=== PATIENT | female | born 1985 | race Caucasian/White ===

== ENCOUNTER 2016-09-23 15:03 | Emergency (ER) | payer MEDICAID ==
[~2016-09-23] VITALS: Ht 160 cm; Wt 58.5 kg
[~2016-09-23 15:03] MED LIST: CLOT30CR24 TOP; FLUC150T17 PO
[2016-09-23 15:06] VITALS: Ht 160 cm; Wt 58.5 kg
--- NOTE | 2016-09-23 15:50 | ERD ---
ER Documentation Chief Complaint Date/Time DATE: 09/23/16 TIME: 15:45 Chief Complaint burning with urination and vaginal itching x 3 days HPI This is a 30-year-old female presenting to the emergency department for dysuria and vaginal itching 2 days. Patient states symptoms started yesterday afternoon and gotten worse. Patient states she has rash to vaginal area with small amount of white discharge. Patient states she is currently 12 weeks with last menstrual period 06/26/2016. Patient is a A0. Denies any vaginal bleeding. Patient states she does have mild pelvic cramping rating pain 3/10 to suprapubic area. Patient states she has had nausea and vomiting however denies nausea and vomiting currently. Patient did have a OB ultrasound 3 days ago. Denies headache, dizziness, weakness, chest pain, shortness of breath, difficulty breathing or wheezing. No fevers or chills. Patient was previously prescribed Diflucan and clotrimazole recently within the last 5 months. ROS All systems reviewed and are negative except as per history of present illness. Medications Home Meds Active Scripts Clotrimazole* (Clotrimazole* AF) 1% - 30 Gm Cream.gm., 1 APPLIC TOP BID for 7 Days, TUB Prov:CHU BULL NP 09/23/16 Nitrofurantoin Monohyd Macrocr* (Macrobid*) 100 Mg Capsr, 100 MG PO BID for 5 Days, CAP Prov:CHU BULL NP 09/23/16 Fluconazole* (Diflucan*) 150 Mg Tablet, 150 MG PO ONCE, #2 TAB Prov:MARY FLORES PA-C 05/24/16 Fluconazole* (Diflucan*) 150 Mg Tablet, 150 MG PO ONCE, #1 TAB Prov:JEANETTE STORM NP 05/20/16 Clotrimazole* (Clotrimazole* AF) 1% - 30 Gm Cream.gm., 1 APPLIC TOP BID for 7 Days, TUB Prov:JEANETTE STORM NP 05/20/16 Reported Medications [None] No Conflict Check 07/11/10 Allergies Allergies: Coded Allergies: No Known Drug Allergies (Verified Allergy, Mild, 09/23/16) PMhx/Soc Medical and Surgical Hx: pt denies Medical Hx, pt denies Surgical Hx History of Surgery: No Anesthesia Reaction: No Hx Neurological Disorder: No Hx Respiratory Disorders: No Hx Cardiac Disorders: No Hx Psychiatric Problems: No Hx Miscellaneous Medical Probl: No Hx Alcohol Use: No Hx Substance Use: No Hx Tobacco Use: No Physical Exam Vitals Vital Signs Date Time Temp Pulse Resp B/P Pulse Ox O2 Delivery O2 Flow Rate FiO2 09/23/16 15:06 97.1 84 16 130/75 100 Physical Exam Const: No acute distress, alert Head: Atraumatic Eyes: Normal Conjunctiva ENT: Normal External Ears, Nose and Mouth. Neck: Full range of motion..~ No meningismus. Resp: Clear to auscultation bilaterally. No wheezing, rhonchi or crackles. Cardio: Regular rate and rhythm, no murmurs Abd: Soft, non distended. Normal bowel sounds. Suprapubic tenderness Skin: No petechiae or rashes Back: No midline or flank tenderness. No CVA tenderness Ext: No cyanosis, or edema Neur: Awake and alert Psych: Normal Mood and Affect : Moderate amount of whitish yeast type discharge to labia minora with erythema. no vesicular lesions. no abscess or purulent drainage. Result Diagram: 09/23/16 1548 Results 24 hrs Laboratory Tests Test 09/23/16 15:48 09/23/16 15:54 White Blood Count 7.010^3/ul Red Blood Count 4.5610^6/ul Hemoglobin 12.4g/dl Hematocrit 36.8% Mean Corpuscular Volume 80.7fl Mean Corpuscular Hemoglobin 27.2pg Mean Corpuscular Hemoglobin Concent 33.7g/dl Red Cell Distribution Width 14.9% Platelet Count 55912^3/UL Mean Platelet Volume 10.7fl Neutrophils % 54.3% Lymphocytes % 33.0% Monocytes % 10.4% Eosinophils % 1.6% Basophils % 0.3% Nucleated Red Blood Cells % 0.0/100WBC Neutrophils # 3.810^3/ul Lymphocytes # 2.310^3/ul Monocytes # 0.710^3/ul Eosinophils # 0.110^3/ul Basophils # 0.010^3/ul Nucleated Red Blood Cells # 0.010^3/ul Beta HCG, Quantitative 325503.0mIU/ml Bedside Urine pH (LAB) 7.0 Bedside Urine Protein (LAB) Negative Bedside Urine Glucose (UA) Negative Bedside Urine Ketones (LAB) Negative Bedside Urine Blood Negative Bedside Urine Nitrite (LAB) Negative Bedside Urine Leukocyte Esterase (L Trace Procedures/MDM ED COURSE: The patient was stable throughout ED course. I kept the patient and/or family informed of laboratory and diagnostic imaging results throughout the ED course. Laboratory CBC no significant infection or anemia Beta-hCG 287095.0 Urine dip trace leukocytosis Imaging OB ultrasound Patient: FRANCESCA NEWTON : 1985 Age: 30 Sex: F MR #: [id number] [facility] #: [id number] DOS: 09/23/16 1541 Ordering MD: CHU BULL NP Location: [facility]TE Room/Bed: PROCEDURE: OB Ultrasound. CLINICAL INDICATION: Positive test. Pelvic pain. TECHNIQUE: Ultrasound of the pelvis was performed with transabdominal sonography in the axial and sagittal planes. COMPARISON: No prior study is available for comparison. FINDINGS: There is a single intrauterine gestational sac. pole and yolk sac are present. There is heart motion. heart rate is 152 beats per minute. [place]-rump length is 6.29 cm. Mean sac diameter is 6.87 cm. Menstrual age by ultrasound dates is 12 weeks 5 days. This indicates an expected date of delivery of 04/02/2017. The ovaries are not visualized. There is no other pelvic mass or free fluid. IMPRESSION: 1. Single live intrauterine gestation of 12 weeks 5 days menstrual age by ultrasound dates. 2. Expected date of delivery is 04/02/2017. MDM: 30-year-old female presents emergency department for dysuria and vaginal itching 2 days. Patient denies vaginal bleeding however states she has mild pelvic cramping. Patient rates pain 3/10. No fevers or chills. Pelvic exam reveals white yeast type discharge to labia minora. Some erythema. This is consistent with vaginal candidiasis. Urine shows trace leukocytosis. This may be due to a dirty catch however since patient is she will be treated for possible UTI. No fevers or chills while in the ED. Remains hemodynamically stable. No vaginal bleeding. OB ultrasound reviewed by radiologist as single live intrauterine gestation of 12 weeks 5 days menstrual age by ultrasound dates. Diagnosis is UTI, vaginal candidiasis and . Low suspicion for pyelonephritis, ectopic , tubo-ovarian abscess, ovarian cyst, or early miscarriage. Patient is appropriate for outpatient management will be given prescription for clotrimazole and Macrobid. Instructed patient to follow-up with PCP or [employer] in the next 24-48 hours for reassessment and additional management. Return to ED for any high fever, chest pain, difficulty breathing, shortness breath, wheezing, vomiting, diarrhea, abdominal pain or any new or worsening symptoms. Patient verbalizes understanding. All questions answered at discharge. Departure Diagnosis: Primary Impression: Dysuria Additional Impression: Weeks of gestation: 12 weeks Qualified Code: Z3A.12 - 12 weeks gestation of Condition: Stable CHU BULL NP Sep 23, 2016 15:50
[2016-09-23 15:54] LABS: URINE BLOOD (Dip) POC Negative (NEGATIVE)
[2016-09-23 16:08] LABS: ADD SCAN DIFF NO
[2016-09-23 16:13] LABS: BASOPHILS % 0.3 % (0.0-2.0); EOSINOPHILS # 0.1 10^3/ul (0.0-0.5); EOSINOPHILS % 1.6 % (0.0-7.0); HEMATOCRIT 36.8 % (37.0-47.0); HEMOGLOBIN 12.4 g/dl (12.0-16.0); LYMPHOCYTES # 2.3 10^3/ul (0.8-2.9); MEAN CORPUSCULAR HEMOGLOBIN 27.2 pg (29.0-33.0); MEAN CORPUSCULAR HGB CONC 33.7 g/dl (32.0-37.0); MEAN CORPUSCULAR VOLUME 80.7 fl (82.0-101.0); MEAN PLATELET VOLUME 10.7 fl (7.4-10.4); MONOCYTE # 0.7 10^3/ul (0.3-0.9); MONOCYTES % 10.4 % (0.0-11.0); NEUTROPHIL # 3.8 10^3/ul (1.6-7.5); NEUTROPHILS % 54.3 % (39.0-77.0); PLATELET COUNT 287 10^3/UL (140-415); RED BLOOD COUNT 4.56 10^6/ul (4.20-5.40); RED CELL DISTRIBUTION WIDTH 14.9 % (11.5-14.5)
--- NOTE | 2016-09-23 17:03 | RADRPT ---
PROCEDURE: OB Ultrasound. CLINICAL INDICATION: Positive test. Pelvic pain. TECHNIQUE: Ultrasound of the pelvis was performed with transabdominal sonography in the axial and sagittal planes. COMPARISON: No prior study is available for comparison. FINDINGS: There is a single intrauterine gestational sac. pole and yolk sac are present. There is heart motion. heart rate is 152 beats per minute. [place]-rump length is 6.29 cm. Mean sac diameter is 6.87 cm. Menstrual age by ultrasound dates is 12 weeks 5 days. This indicates an expected date of delivery of 04/02/2017. The ovaries are not visualized. There is no other pelvic mass or free fluid. IMPRESSION: 1. Single live intrauterine gestation of 12 weeks 5 days menstrual age by ultrasound dates. 2. Expected date of delivery is 04/02/2017. RPTAT: QQ .Hira Noonan MD, Date Time Electronically viewed and signed by .Hira Noonan MD, on 09/23/2016 17:03 .R/
[2016-09-23] MEDS ORDERED: CLOT30CR24 TOP (17:24)
[2016-09-23] MEDS ORDERED: NITR-58 PO (17:24)
== END 2016-09-23 17:37 | disposition home or self-care (01) ==
LOC: FTE 15:03
DX: O99.89 Other specified diseases and conditions complicating pregnancy, childbirth and the puerperium (principal); R30.0 Dysuria; R10.2 Pelvic and perineal pain; Z3A.12 12 weeks gestation of pregnancy
CPT/HCPCS: 36415; 76801; 81003; 84702; 85025; 86900; 86901

== ENCOUNTER 2017-01-04 08:48 | Outpatient (CLI) | payer MEDICAID ==
[~2017-01-04] VITALS: Ht 160 cm; Wt 65.7 kg
[~2017-01-04 08:48] MED LIST changes: +NITR-58 PO
[2017-01-04 09:07] VITALS: Ht 160 cm; Wt 65.7 kg
[2017-01-04 09:08] VITALS: BP 99/61; PULSE 72
[2017-01-04] MEDS ORDERED: PRENAT PO (09:10)
[2017-01-04] MEDS ORDERED: LACTATED RINGER'S 1,000 ML IV SCH (10:00)
--- NOTE | 2017-01-04 10:48 | RADRPT ---
PROCEDURE: US OB. Ultrasound cervix CLINICAL INDICATION: Size and dates , labor TECHNIQUE: Multiple sonographic images of the pelvis and gravid uterus were obtained. In addition, transvaginal images of the cervix were obtained. The images were reviewed on a PACS workstation. COMPARISON: No prior studies are available for comparison. FINDINGS: The cervix is closed with a length of 3.9 cm. There is a single viable intrauterine gestation. Cardiac activity is present with 146 beats per min [place]. There is a vertex presentation. The placenta is posterior. There is no evidence for an abruption or placenta previa. There is a normal amount of amniotic fluid with an ELDA = 12.3 cm. Measurements were made in order to determine age. The results are as follows: BPD =7.0 cm HC =25.8 cm AC =22.5 cm FL =5.1 cm Estimated gestational age of approximately 27 weeks and 4 days based on ultrasound measurements. Clinical age: 27 weeks and 2 days. The estimated date of delivery is 04/01/17, based on ultrasound measurements. The EFW = 1035 g, 32.5%, based on LMP age. RPTAT: AA IMPRESSION: Single viable intrauterine gestation of approximately 27 weeks and 4 days based on ultrasound measu rements. .Jonathan Knutson MD, MD Date Time Electronically viewed and signed by .Jonathan nKutson MD, MD on 01/04/2017 10:48 .S/
[2017-01-04 11:08] LABS: ADD UMIC YES; UR ASCORBIC ACID NEGATIVE (NEGATIVE); UR BACTERIA FEW /HPF (NONE SEEN); UR BILIRUBIN (Dip) NEGATIVE (NEGATIVE); UR BLOOD (Dip) NEGATIVE (NEGATIVE); UR CLARITY CLEAR (CLEAR); UR COLOR STRAW (YELLOW); UR GLUCOSE (Dip) NEGATIVE (NEGATIVE); UR KETONES (Dip) NEGATIVE (NEGATIVE); UR LEUKOCYTE ESTERASE (Dip) 3+ Leu/ul (NEGATIVE); UR NITRITE (Dip) NEGATIVE (NEGATIVE); UR RBC 5 /HPF (0-5); UR SPECIFIC GRAVITY (Dip) 1.004 (1.003-1.030); UR SQUAMOUS EPITHELIAL CELL FEW /HPF (FEW); UR TOTAL PROTEIN (Dip) NEGATIVE (NEGATIVE); UR UROBILINOGEN (Dip) NEGATIVE (NEGATIVE)
--- NOTE | 2017-01-04 12:12 | TRIAGE ---
OB Triage Datetime Report Generated by CPN: 01/04/2017 12:11 Datetime: 01/04/2017 11:49 Stage of : OB Triage Datetime: 01/04/2017 11:25 Labor Evaluation Frequency: 0 Monitor Mode: External Resting Tone [place]: Relaxed Heart Rate FHR Baseline Rate: 140 Monitor Mode: External US Variability: Moderate 6-25 bpm Accelerations: 10X10 Decelerations: None Category: Category I Pain Assessment Pain Scale: 0 Pain Presence: None/Denies Pain Type: N/A Pain Goal: 3 Pain Relief Measures: Comfort Measures Pain Assessment Comments: states feels better Datetime: 01/04/2017 10:21 Labor Evaluation Frequency: 0 Monitor Mode: External Pattern: Normal: <= 5 Contractions in 10 Minutes Resting Tone [place]: Relaxed Heart Rate FHR Baseline Rate: 135 Monitor Mode: External US Variability: Moderate 6-25 bpm Decelerations: None Pain Assessment Pain Scale: 3 Pain Presence: Intermittent Pain Type: Pressure Pain Location: Perineum Pain Goal: 3 Pain Relief Measures: Comfort Measures Datetime: 01/04/2017 09:53 Stage of : OB Triage Datetime: 01/04/2017 09:04 Stage of : OB Triage Assessment Type: Triage Maternal Assessment Level of Consciousness: Fully Conscious DTR's/Clonus: DTRs 2+; No Clonus Headache: Denies Blurred Vision: No Respiratory Effort: Unlabored; Regular Rhythm; Equal Expansion Breath Sounds, Left: Clear and Equal Breath Sounds, Right: Clear and Equal Nausea/Vomiting: Denies RUQ Epigastric Pain: Denies Facial Edema: None Temperature Route: Axillary Fall Risk Assessment History of Falling: (0) No Secondary Diagnosis: (0) No Ambulatory Aid: (0) Bedrest/Nurse Assist IV Therapy: (0) No Gait: (0) Normal/Bedrest/Immobile Mental Status: (0) Oriented to Own Ability Fall Score: 0 Fall Risk Score Definition: No Risk: No action required Labor Evaluation Frequency: 0 Monitor Mode: External Resting Tone [place]: Relaxed Heart Rate FHR Baseline Rate: 135 Monitor Mode: External US Variability: Moderate 6-25 bpm Decelerations: None Category: Category I Pain Assessment Pain Scale: 4 Pain Presence: Intermittent Pain Type: Cramping; Pressure Pain Location: Perineum Pain Goal: 3 Pain Relief Measures: Comfort Measures Datetime: 01/04/2017 09:03 Time of Arrival: 01/04/2017 08:36 EGA: 27.3 Arrived By: Ambulatory Chief Complaint: C/O PELVIC PRESSURE/PAIN THAT IS INTERMITTENT. DENIES BLEEDING OR LEAKING Movement: Present Contractions: Denies/Absent Rupture of Membranes: Denies Vaginal Bleeding: None Vaginal Discharge: Denies Recent Sexual Intercouse: Denies Abdominal Trauma: Not Applicable Patient Complaints: Cramping Time Provider Notified: 01/04/2017 09:53 Provider Notified: МАРИНА Initial Plan: MONITOR, U/A, CL, EFW, ELDA, IV HYDRATION
--- NOTE | 2017-01-04 14:18 | QN ---
Documentation Comment iup 27 weeks abd pain vss exam wnl labs us wnl a/p iup 27 weeks false labor dc [place] EDISON ONTIVEROS MD Jan 04, 2017 14:18
== END 2017-01-04 12:00 | disposition home or self-care (01) ==
LOC: OBT 08:48 → L-D 08:50 → OBT 12:00
PROVIDERS: ATTEND Obstetrics & Gynecology
DX: O26.892 Other specified pregnancy related conditions, second trimester (principal); Z3A.27 27 weeks gestation of pregnancy; R10.9 Unspecified abdominal pain
CPT/HCPCS: 36415; 76815; 76817; 81001; 96360; 96361; J7120; Z7500; G0463

== ENCOUNTER 2017-04-12 07:59 | Inpatient (IN) | payer MEDICAID ==
[~2017-04-12] VITALS: Ht 154.9 cm; Wt 74.8 kg
[~2017-04-12 07:59] MED LIST changes: -CLOT30CR24 TOP; -FLUC150T17 PO; -NITR-58 PO; +PRENAT PO
--- NOTE | 2017-04-12 09:43 | RADRPT ---
PROCEDURE: US OB. CLINICAL INDICATION: Size and dates , post dates TECHNIQUE: Multiple sonographic images of the pelvis and gravid uterus were obtained. The images were reviewed on a PACS workstation. COMPARISON: No prior studies are available for comparison. FINDINGS: There is a single viable intrauterine gestation. Cardiac activity is present with 139 beats per min adrien[place]. There is a vertex presentation. The placenta is fundal. There is no evidence for an abruption or placenta previa. Measurements were made in order to determine age. The results are as follows: BPD =9.1 cm HC =33 cm AC =33 cm FL =7.0 cm Estimated gestational age of approximately 36 weeks and 6 days based on ultrasound measurements. Clinical age: 41 weeks and 5 days. The estimated date of delivery is 05/04/17, based on ultrasound measurements. The EFW = 3022 g RPTAT: AA IMPRESSION: Single viable intrauterine gestation of approximately 36 weeks and 6 days based on ultrasound measu rements. Smaller than clinical age by 5 weeks. .Jonathan Knutson MD, Date Time Electronically viewed and signed by .Jonathan Knutson MD, on 04/12/2017 09:43 .S/
--- NOTE | 2017-04-12 09:47 | RADRPT ---
PROCEDURE: US OB biophysical profile. CLINICAL INDICATION: decreased movements TECHNIQUE: Multiple sonographic images of the pelvis were obtained. The images were reviewed on a PACS workstation. COMPARISON: No prior studies are available for comparison. FINDINGS: There is a single viable intrauterine gestation. Cardiac activity is present with 138 beats per min adrienne. There is a vertex presentation. The placenta is fundal. There is no evidence of placental abruption. There is a slightly decreased amount of amniotic fluid with an ELDA = 7.8 cm. Biophysical profile: movement 2/2 tone 2/2. breathing 2/2 ELDA 2/2 Total 01/15 RPTAT: AA . IMPRESSION: Normal biophysical profile. Slightly decreased ELDA. . .Jonathan Knutson MD, Date Time Electronically viewed and signed by .Jonathan Knutson MD, on 04/12/2017 09:47 .S/
[2017-04-12 10:13] VITALS: Ht 154.9 cm; Wt 74.8 kg
[2017-04-12 10:14] VITALS: BP 106/64; PULSE 80; RESP 18
[2017-04-12] MEDS ORDERED: LACTATED RINGER'S 1,000 ML IV PRN (10:20)
[2017-04-12] MEDS ORDERED: OXYTOCIN 30 UNITS/LR 500 ML IV PRN (10:30)
[2017-04-12] MEDS ORDERED: OXYTOCIN 30 UNITS/LR 500 ML IV SCH ×2 (10:30)
[2017-04-12] MEDS ORDERED: AMPICILLIN 2 GM/NS (PMX) 100 ML IV ONE (10:30)
[2017-04-12] MEDS ORDERED: LIDOCAINE 1% (MPF) 30 ML INJ INJ PRN (10:30)
[2017-04-12] MEDS ORDERED: MISOPROSTOL 200 MCG TAB PR PRN (10:30)
[2017-04-12] MEDS ORDERED: IBUPROFEN 600 MG TAB PO PRN (10:30)
[2017-04-12] MEDS ORDERED: METHYLERGONOVINE 0.2 MG INJ IM PRN (10:30)
[2017-04-12] MEDS ORDERED: CARBOPROST 250 MCG INJ IM PRN (10:30)
[2017-04-12] MEDS: LACTATED RINGER'S 1,000 ML IV SCH ×2 (11:14→22:43)
[2017-04-12] MEDS ORDERED: MINERAL OIL LIGHT 10 ML VIAL TOP ONE (11:30)
[2017-04-12] MEDS ORDERED: DINOPROSTONE 10 MG VAG SUPP VAG ONE (11:30)
[2017-04-12] MEDS: AMPICILLIN 1 GM/NS (PMX) 50 ML IV SCH ×3 (14:52→23:05)
--- NOTE | 2017-04-12 17:41 | HP ---
Date/Time of Note Date/Time of Note DATE: 04/12/17 TIME: 17:20 OB - History Hx of Present Free Text/Dictation 30 years old female EDC April 03, 2017 admitted at 41 week and 2 days for induction of labor pelvic examination on admission cervix half a centimeter dilated at 0% effaced vertex at -2 -3 station considering the condition of the cervix ,plan for Cervidil induction discussed with the her and first Cervidil was placed at 1130 am , he continued having adequate contractions and heart rate was category 1 at approximately 1425 there was a 5 minute variable deceleration, Cervidil was removed immediately heart rate recovered and patient having contractions on her own. Chief Complaint: 41 weeks 2 days admitted for induction of labor Estimated Due Date: Apr 03, 2017 : 1 Para: 0 Care: Limited Care Ultrasounds: Normal mid trimester US Obstetrical Complications: None Medical Complications: None Past Family/Social History * Past Medical, Surgical, Family and Obstetric Histories reviewed from chart. Rubella: immune RPR/VDRL: Negative GBS Status: Negative HBsAG: Negative OB Admission Exam Vital Signs Vital Signs Vital Signs Date Time Temp Pulse Resp B/P Pulse Ox O2 Delivery O2 Flow Rate FiO2 04/12/17 10:14 97.9 80 18 106/64 Room Air Physical Exam HEENT: WNL Heart: Rhythm Normal Lungs: Clear, Equal Abdomen: WNL Extremities: Normal Reflexes: Normal Cervical Dilatation: None Effacement: 0% Station: -2 Membranes: Intact Accelerations: Accelerations Present Decelerations: Variable Decelerations Varibility: Moderate Contractions on Admission: < 5 Minutes Apart Intensity: Moderate Last 72 hours Lab Results CBC & BMP 04/12/17 07:50 OB Assessment/Plan Reason for admission: induction of labor, other Induction Method: other Other plan: 1 years old EDC April 02, 2017 admitted for induction of labor at 41 weeks and 2 days underwent Cervidil induction due to intolerance and one episode of variable deceleration for approximately 4-5 minutes Cervidil was removed, she continues having contraction on her own heart tracing category 1, we will continue expecting management for hoping. vaginal delivery ROYAL PARISH MD Apr 12, 2017 17:35
[2017-04-12] MEDS: BUTORPHANOL 2 MG INJ IV PRN ×2 (20:27→23:07)
[2017-04-13] MEDS ORDERED: FENTAnyl 2MCG/ML-ROPIV 0.2% 100 ML ONE (02:16)
[2017-04-13] MEDS: LACTATED RINGER'S 1,000 ML IV SCH (03:13)
[2017-04-13] MEDS: AMPICILLIN 1 GM/NS (PMX) 50 ML IV SCH (03:13)
[2017-04-13] MEDS: OXYTOCIN 30 UNITS/LR 500 ML IV SCH ×2 (07:11→11:11)
--- NOTE | 2017-04-13 07:17 | LDN ---
Date/Time of Note Date/Time of Note DATE: 04/13/17 TIME: 07:13 Delivery Summary Vacuum assisted vaginal delivery of a viable baby boy weighing 3015 grams or 6# 10 oz, 20.5" long, and with Apgars of 8/9. Weeks of Gestation 41w 3d Assisted Vaginal Delivery: Vacuum (for decels and lack of progress at +2 station.) Placenta Delivered: Manually Meconium: Thick Episiotomy: No Perineal laceration: 2 Laceration repair: Second degree perineal laceration repaired with 2-0 chromic. Anesthesia type: Epidural Estimated blood loss: 350 Sponge & Needle done & correct: Yes All needle counts correct: Yes Any foreign bodies felt in the: No (vagina) Problems: Infant Delivery Information Sex Sex: male Apgars 1 Minute: 8 5 Minute: 9 Suctioning Nose & mouth suctioned at bryce: Yes Delee suction performed: Yes Umbilical Cord Umbilical cord with: 3 Vessels Cord presentations: no nuchal cord Cord Blood was obtained: Yes Mother & Baby Disposition Disposition Mom & Baby to Maternity; Good: Yes Baby to NICU: No MIGUEL BRAGA MD Apr 13, 2017 07:17
[2017-04-13] MEDS ORDERED: OXYTOCIN 30 UNITS/LR 500 ML IV PRN (07:30)
[2017-04-13] MEDS ORDERED: METHYLERGONOVINE 0.2 MG INJ IM PRN (07:30)
[2017-04-13] MEDS ORDERED: LANOLIN 7 GM TUBE TOP PRN (07:30)
[2017-04-13] MEDS ORDERED: MISOPROSTOL 200 MCG TAB PR PRN (07:30)
[2017-04-13] MEDS ORDERED: CARBOPROST 250 MCG INJ IM PRN (07:30)
[2017-04-13 08:10] VITALS: BP 97/53; RESP 18
[2017-04-13] MEDS: BENZOCAINE 20% 56 ML SPRAY TOP PRN ×2 (09:49→21:42)
[2017-04-13] MEDS: HYDROCODONE/APAP (5/325) TAB PO PRN (09:56)
[2017-04-13] MEDS: LACTATED RINGER'S 1,000 ML IV* SCH ×3 (09:56→23:11)
[2017-04-13] MEDS: IBUPROFEN 600 MG TAB PO SCH ×2 (11:56→17:35)
[2017-04-13 20:00] VITALS: BP 98/55; PULSE 85; RESP 18
[2017-04-14] VITALS: BP 99/55; PULSE 84; RESP 18
[2017-04-14] MEDS: IBUPROFEN 600 MG TAB PO SCH ×4 (00:09→17:45)
[2017-04-14 04:05] VITALS: BP 98/54; PULSE 84; RESP 18
[2017-04-14] MEDS: LACTATED RINGER'S 1,000 ML IV* SCH (07:11)
[2017-04-14 08:00] VITALS: BP 97/52; PULSE 85; RESP 18
--- NOTE | 2017-04-14 13:18 | PN ---
Date/Time of Note Date/Time of Note DATE: 04/14/17 TIME: 13:16 OB Subjective Subjective Subjective Post day 1 Doing Well Afebrile Ambulatory Chest Clear Breasts are soft , Nipples are intact Abdomen is soft Fundus is firm Moderate amount of lochia No evidence of infection No calf tenderness Laboratory Tests Test 04/14/17 09:52 White Blood Count 12.210^3/ul Red Blood Count 3.1510^6/ul Hemoglobin 8.9g/dl Hematocrit 26.3% Mean Corpuscular Volume 83.5fl Mean Corpuscular Hemoglobin 28.3pg Mean Corpuscular Hemoglobin Concent 33.8g/dl Red Cell Distribution Width 15.2% Platelet Count 41634^3/UL Mean Platelet Volume 10.9fl Neutrophils % 74.2% Lymphocytes % 16.9% Monocytes % 7.6% Eosinophils % 0.4% Basophils % 0.2% Nucleated Red Blood Cells % 0.0/100WBC Neutrophils # 9.010^3/ul Lymphocytes # 2.110^3/ul Monocytes # 0.910^3/ul Eosinophils # 0.110^3/ul Basophils # 0.010^3/ul Nucleated Red Blood Cells # 0.010^3/ul Current Medications Medications (Trade) Dose Ordered Sig/[place] Route PRN Reason Start Time Stop Time Status Last Admin Dose Admin Lactated Ringer's 1,000 ml @ 125 mls/hr Q8H IV 04/12/17 10:17 04/13/17 07:14 DC 04/13/17 03:13 Ampicillin 100 ml @ 100 mls/hr ONCE ONCE IV 04/12/17 10:30 04/12/17 11:29 DC 04/12/17 11:14 Ampicillin (Ampicillin 1 Gm/ NS (Pmx)) 50 ml @ 100 mls/hr Q4H IV 04/12/17 14:30 04/13/17 07:14 DC 04/13/17 03:13 Butorphanol Tartrate (Stadol) 2 mg Q2H PRN IV PAIN 04/12/17 10:30 04/13/17 07:14 DC 04/12/17 23:07 Lidocaine 30 ml 30 ml ONCE PRN INJ EPISIOTOMY/TEARING 04/12/17 10:30 04/13/17 07:14 DC Oxytocin/Lactated Ringer's 500 ml @ 125 mls/hr ONCE -MAY REPEAT X1 IV 04/12/17 10:30 04/13/17 07:14 DC 04/13/17 05:36 Oxytocin/Lactated Ringer's 500 ml @ 125 mls/hr ONCE IV 04/12/17 10:30 04/13/17 07:14 DC 04/13/17 05:59 Ibuprofen 600 mg 600 mg ONCE PRN PO Mild Pain (Pain Score 1-3) 04/12/17 10:30 04/13/17 07:14 DC Lactated Ringer's 1,000 ml @ 2,000 mls/hr Q30M PRN IV PRE-EPIDURAL BOLUS 04/12/17 10:20 04/13/17 07:14 DC 04/13/17 01:46 Oxytocin/Lactated Ringer's 500 ml @ 0 mls/hr ONCE PRN IV For Hemorrhage Management 04/12/17 10:30 04/13/17 07:14 DC Methylergonovine Maleate (Methergine) 0.2 mg ONCE PRN IM VAGINAL BLEEDING 04/12/17 10:30 04/13/17 07:14 DC Carboprost Tromethamine (Hemabate) 250 mcg ONCE PRN IM VAGINAL BLEEDING 04/12/17 10:30 04/13/17 07:14 DC Misoprostol (Cytotec) 1,000 mcg ONCE PRN FL VAGINAL BLEEDING 04/12/17 10:30 04/13/17 07:14 DC Dinoprostone (Cervidil Vaginal Supp) 10 mg ONCE ONCE VAG 04/12/17 11:30 04/12/17 11:31 DC 04/12/17 11:23 Mineral Oil ONCE ONCE TOP 04/12/17 11:30 04/12/17 11:31 DC Fentanyl/ Ropivacaine 100 ml @ ud STK-MED ONCE .ROUTE 04/13/17 02:16 04/13/17 02:17 DC Oxytocin/Lactated Ringer's 500 ml @ 125 mls/hr Q4H IV 04/13/17 07:11 04/13/17 15:10 DC Lactated Ringer's (Lr) 1,000 ml @ 125 mls/hr Q8H IV* 04/13/17 07:11 04/14/17 07:49 DC 04/13/17 09:56 Ibuprofen (Motrin) 600 mg Q6 PO 04/13/17 12:00 04/14/17 11:40 Acetaminophen/ Hydrocodone Bitart ([place] (5/325)) 1 tab Q4H PRN PO PAIN LEVEL 1-5 04/13/17 07:30 04/13/17 09:56 Benzocaine (Dermoplast [place]) 1 spray BEDSIDE MEDICATION PRN TOP HEMORRHOID/EPISIOTMY PAIN 04/13/17 07:30 04/13/17 21:42 Lanolin (Saq-W-Svyagw) 1 applic BEDSIDE MEDICATION PRN TOP BEDSIDE FOR NOEMY TO NIPPLES 04/13/17 07:30 04/13/17 09:50 Diphtheria/ Tetanus/Acell Pertussis 0.5 ml 0.5 ml ONCE ONCE IM* 04/15/17 09:00 04/15/17 09:01 Oxytocin/Lactated Ringer's 500 ml @ 0 mls/hr ONCE PRN IV For Hemorrhage Management 04/13/17 07:30 Methylergonovine Maleate (Methergine) 0.2 mg ONCE PRN IM VAGINAL BLEEDING 04/13/17 07:30 Carboprost Tromethamine (Hemabate) 250 mcg ONCE PRN IM VAGINAL BLEEDING 04/13/17 07:30 Misoprostol (Cytotec) 1,000 mcg ONCE PRN FL VAGINAL BLEEDING 04/13/17 07:30 Influenza Virus Vaccine (Fluzone) 0.5 ml ONCE ONCE IM* 04/15/17 09:00 04/15/17 09:01 No ankle edema New born is doing well, Breast feeding MICHAEL BRIGHT MD Apr 14, 2017 13:18
--- NOTE | 2017-04-14 13:18 | PN ---
Date/Time of Note Date/Time of Note DATE: 04/14/17 TIME: 13:16 OB Subjective Subjective Subjective Post day 1 Doing Well Afebrile Ambulatory Chest Clear Breasts are soft , Nipples are intact Abdomen is soft Fundus is firm Moderate amount of lochia No evidence of infection No calf tenderness Laboratory Tests Test 04/14/17 09:52 White Blood Count 12.210^3/ul Red Blood Count 3.1510^6/ul Hemoglobin 8.9g/dl Hematocrit 26.3% Mean Corpuscular Volume 83.5fl Mean Corpuscular Hemoglobin 28.3pg Mean Corpuscular Hemoglobin Concent 33.8g/dl Red Cell Distribution Width 15.2% Platelet Count 78336^3/UL Mean Platelet Volume 10.9fl Neutrophils % 74.2% Lymphocytes % 16.9% Monocytes % 7.6% Eosinophils % 0.4% Basophils % 0.2% Nucleated Red Blood Cells % 0.0/100WBC Neutrophils # 9.010^3/ul Lymphocytes # 2.110^3/ul Monocytes # 0.910^3/ul Eosinophils # 0.110^3/ul Basophils # 0.010^3/ul Nucleated Red Blood Cells # 0.010^3/ul Current Medications Medications (Trade) Dose Ordered Sig/Gabino Route PRN Reason Start Time Stop Time Status Last Admin Dose Admin Lactated Ringer's 1,000 ml @ 125 mls/hr Q8H IV 04/12/17 10:17 04/13/17 07:14 DC 04/13/17 03:13 Ampicillin 100 ml @ 100 mls/hr ONCE ONCE IV 04/12/17 10:30 04/12/17 11:29 DC 04/12/17 11:14 Ampicillin (Ampicillin 1 Gm/ NS (Pmx)) 50 ml @ 100 mls/hr Q4H IV 04/12/17 14:30 04/13/17 07:14 DC 04/13/17 03:13 Butorphanol Tartrate (Stadol) 2 mg Q2H PRN IV PAIN 04/12/17 10:30 04/13/17 07:14 DC 04/12/17 23:07 Lidocaine 30 ml 30 ml ONCE PRN INJ EPISIOTOMY/TEARING 04/12/17 10:30 04/13/17 07:14 DC Oxytocin/Lactated Ringer's 500 ml @ 125 mls/hr ONCE -MAY REPEAT X1 IV 04/12/17 10:30 04/13/17 07:14 DC 04/13/17 05:36 Oxytocin/Lactated Ringer's 500 ml @ 125 mls/hr ONCE IV 04/12/17 10:30 04/13/17 07:14 DC 04/13/17 05:59 Ibuprofen 600 mg 600 mg ONCE PRN PO Mild Pain (Pain Score 1-3) 04/12/17 10:30 04/13/17 07:14 DC Lactated Ringer's 1,000 ml @ 2,000 mls/hr Q30M PRN IV PRE-EPIDURAL BOLUS 04/12/17 10:20 04/13/17 07:14 DC 04/13/17 01:46 Oxytocin/Lactated Ringer's 500 ml @ 0 mls/hr ONCE PRN IV For Hemorrhage Management 04/12/17 10:30 04/13/17 07:14 DC Methylergonovine Maleate (Methergine) 0.2 mg ONCE PRN IM VAGINAL BLEEDING 04/12/17 10:30 04/13/17 07:14 DC Carboprost Tromethamine (Hemabate) 250 mcg ONCE PRN IM VAGINAL BLEEDING 04/12/17 10:30 04/13/17 07:14 DC Misoprostol (Cytotec) 1,000 mcg ONCE PRN RI VAGINAL BLEEDING 04/12/17 10:30 04/13/17 07:14 DC Dinoprostone (Cervidil Vaginal Supp) 10 mg ONCE ONCE VAG 04/12/17 11:30 04/12/17 11:31 DC 04/12/17 11:23 Mineral Oil ONCE ONCE TOP 04/12/17 11:30 04/12/17 11:31 DC Fentanyl/ Ropivacaine 100 ml @ ud STK-MED ONCE .ROUTE 04/13/17 02:16 04/13/17 02:17 DC Oxytocin/Lactated Ringer's 500 ml @ 125 mls/hr Q4H IV 04/13/17 07:11 04/13/17 15:10 DC Lactated Ringer's (Lr) 1,000 ml @ 125 mls/hr Q8H IV* 04/13/17 07:11 04/14/17 07:49 DC 04/13/17 09:56 Ibuprofen (Motrin) 600 mg Q6 PO 04/13/17 12:00 04/14/17 11:40 Acetaminophen/ Hydrocodone Bitart ([place] (5/325)) 1 tab Q4H PRN PO PAIN LEVEL 1-5 04/13/17 07:30 04/13/17 09:56 Benzocaine (Dermoplast [place]) 1 spray BEDSIDE MEDICATION PRN TOP HEMORRHOID/EPISIOTMY PAIN 04/13/17 07:30 04/13/17 21:42 Lanolin (Azb-[id number]) 1 applic BEDSIDE MEDICATION PRN TOP BEDSIDE FOR NOEMY TO NIPPLES 04/13/17 07:30 04/13/17 09:50 Diphtheria/ Tetanus/Acell Pertussis 0.5 ml 0.5 ml ONCE ONCE IM* 04/15/17 09:00 04/15/17 09:01 Oxytocin/Lactated Ringer's 500 ml @ 0 mls/hr ONCE PRN IV For Hemorrhage Management 04/13/17 07:30 Methylergonovine Maleate (Methergine) 0.2 mg ONCE PRN IM VAGINAL BLEEDING 04/13/17 07:30 Carboprost Tromethamine (Hemabate) 250 mcg ONCE PRN IM VAGINAL BLEEDING 04/13/17 07:30 Misoprostol (Cytotec) 1,000 mcg ONCE PRN RI VAGINAL BLEEDING 04/13/17 07:30 Influenza Virus Vaccine (Fluzone) 0.5 ml ONCE ONCE IM* 04/15/17 09:00 04/15/17 09:01 No ankle edema New born is doing well, Breast feeding MICHAEL BRIGHT MD Apr 14, 2017 13:18
--- NOTE | 2017-04-14 13:18 | PN ---
Date/Time of Note Date/Time of Note DATE: 04/14/17 TIME: 13:16 OB Subjective Subjective Subjective Post day 1 Doing Well Afebrile Ambulatory Chest Clear Breasts are soft , Nipples are intact Abdomen is soft Fundus is firm Moderate amount of lochia No evidence of infection No calf tenderness Laboratory Tests Test 04/14/17 09:52 White Blood Count 12.210^3/ul Red Blood Count 3.1510^6/ul Hemoglobin 8.9g/dl Hematocrit 26.3% Mean Corpuscular Volume 83.5fl Mean Corpuscular Hemoglobin 28.3pg Mean Corpuscular Hemoglobin Concent 33.8g/dl Red Cell Distribution Width 15.2% Platelet Count 14064^3/UL Mean Platelet Volume 10.9fl Neutrophils % 74.2% Lymphocytes % 16.9% Monocytes % 7.6% Eosinophils % 0.4% Basophils % 0.2% Nucleated Red Blood Cells % 0.0/100WBC Neutrophils # 9.010^3/ul Lymphocytes # 2.110^3/ul Monocytes # 0.910^3/ul Eosinophils # 0.110^3/ul Basophils # 0.010^3/ul Nucleated Red Blood Cells # 0.010^3/ul Current Medications Medications (Trade) Dose Ordered Sig/Gabino Route PRN Reason Start Time Stop Time Status Last Admin Dose Admin Lactated Ringer's 1,000 ml @ 125 mls/hr Q8H IV 04/12/17 10:17 04/13/17 07:14 DC 04/13/17 03:13 Ampicillin 100 ml @ 100 mls/hr ONCE ONCE IV 04/12/17 10:30 04/12/17 11:29 DC 04/12/17 11:14 Ampicillin (Ampicillin 1 Gm/ NS (Pmx)) 50 ml @ 100 mls/hr Q4H IV 04/12/17 14:30 04/13/17 07:14 DC 04/13/17 03:13 Butorphanol Tartrate (Stadol) 2 mg Q2H PRN IV PAIN 04/12/17 10:30 04/13/17 07:14 DC 04/12/17 23:07 Lidocaine 30 ml 30 ml ONCE PRN INJ EPISIOTOMY/TEARING 04/12/17 10:30 04/13/17 07:14 DC Oxytocin/Lactated Ringer's 500 ml @ 125 mls/hr ONCE -MAY REPEAT X1 IV 04/12/17 10:30 04/13/17 07:14 DC 04/13/17 05:36 Oxytocin/Lactated Ringer's 500 ml @ 125 mls/hr ONCE IV 04/12/17 10:30 04/13/17 07:14 DC 04/13/17 05:59 Ibuprofen 600 mg 600 mg ONCE PRN PO Mild Pain (Pain Score 1-3) 04/12/17 10:30 04/13/17 07:14 DC Lactated Ringer's 1,000 ml @ 2,000 mls/hr Q30M PRN IV PRE-EPIDURAL BOLUS 04/12/17 10:20 04/13/17 07:14 DC 04/13/17 01:46 Oxytocin/Lactated Ringer's 500 ml @ 0 mls/hr ONCE PRN IV For Hemorrhage Management 04/12/17 10:30 04/13/17 07:14 DC Methylergonovine Maleate (Methergine) 0.2 mg ONCE PRN IM VAGINAL BLEEDING 04/12/17 10:30 04/13/17 07:14 DC Carboprost Tromethamine (Hemabate) 250 mcg ONCE PRN IM VAGINAL BLEEDING 04/12/17 10:30 04/13/17 07:14 DC Misoprostol (Cytotec) 1,000 mcg ONCE PRN OK VAGINAL BLEEDING 04/12/17 10:30 04/13/17 07:14 DC Dinoprostone (Cervidil Vaginal Supp) 10 mg ONCE ONCE VAG 04/12/17 11:30 04/12/17 11:31 DC 04/12/17 11:23 Mineral Oil ONCE ONCE TOP 04/12/17 11:30 04/12/17 11:31 DC Fentanyl/ Ropivacaine 100 ml @ ud STK-MED ONCE .ROUTE 04/13/17 02:16 04/13/17 02:17 DC Oxytocin/Lactated Ringer's 500 ml @ 125 mls/hr Q4H IV 04/13/17 07:11 04/13/17 15:10 DC Lactated Ringer's (Lr) 1,000 ml @ 125 mls/hr Q8H IV* 04/13/17 07:11 04/14/17 07:49 DC 04/13/17 09:56 Ibuprofen (Motrin) 600 mg Q6 PO 04/13/17 12:00 04/14/17 11:40 Acetaminophen/ Hydrocodone Bitart ([place] (5/325)) 1 tab Q4H PRN PO PAIN LEVEL 1-5 04/13/17 07:30 04/13/17 09:56 Benzocaine (Dermoplast [place]) 1 spray BEDSIDE MEDICATION PRN TOP HEMORRHOID/EPISIOTMY PAIN 04/13/17 07:30 04/13/17 21:42 Lanolin (Bje-B-Keqpyy) 1 applic BEDSIDE MEDICATION PRN TOP BEDSIDE FOR NOEMY TO NIPPLES 04/13/17 07:30 04/13/17 09:50 Diphtheria/ Tetanus/Acell Pertussis 0.5 ml 0.5 ml ONCE ONCE IM* 04/15/17 09:00 04/15/17 09:01 Oxytocin/Lactated Ringer's 500 ml @ 0 mls/hr ONCE PRN IV For Hemorrhage Management 04/13/17 07:30 Methylergonovine Maleate (Methergine) 0.2 mg ONCE PRN IM VAGINAL BLEEDING 04/13/17 07:30 Carboprost Tromethamine (Hemabate) 250 mcg ONCE PRN IM VAGINAL BLEEDING 04/13/17 07:30 Misoprostol (Cytotec) 1,000 mcg ONCE PRN OK VAGINAL BLEEDING 04/13/17 07:30 Influenza Virus Vaccine (Fluzone) 0.5 ml ONCE ONCE IM* 04/15/17 09:00 04/15/17 09:01 No ankle edema New born is doing well, Breast feeding MICHAEL BRIGHT MD Apr 14, 2017 13:18
[2017-04-14 16:00] VITALS: BP 112/76; PULSE 85; RESP 18
[2017-04-14 20:00] VITALS: BP 102/61; PULSE 93; RESP 18
[2017-04-14] MEDS: HYDROCODONE/APAP (5/325) TAB PO PRN (22:56)
[2017-04-15] MEDS: IBUPROFEN 600 MG TAB PO SCH ×3 (00:21→12:01)
[2017-04-15 04:00] VITALS: BP 100/56; PULSE 87; RESP 18
[2017-04-15 08:00] VITALS: BP 101/69; PULSE 76; RESP 19
[2017-04-15] MEDS ORDERED: DIPHTH/TET/ACEL PERTUSS (ADULT) 0.5 ML VIAL IM* ONE (09:00)
[2017-04-15] MEDS ORDERED: INFLUENZA VIRUS VACCINE 0.5 ML (DISPENSING) IM* ONE (09:00)
--- NOTE | 2017-04-15 09:39 | PD.PPDC ---
CLAY DRY PRESS HELPER Discharge Instruction Condition Patient Condition: Good Activity/Restrictions Activity: Normal Activity Restrictions: No Exercising Follow-up Follow-up with Physician: 2, Week/Weeks Provider Information: instructions given recommended to make appointment to be seen at the clinic in 2 weeks Return to clinic for PANELBEATER Instructions: Fever greater than 101 Chills Worsening abdominal pain Excessive Vaginal Bleeding More than 2 pads per hour Unable to tolerate diet OB Instructions: Breast Tenderness Depression Blurried Vision Headache ROYAL PARISH MD Apr 15, 2017 09:39
--- NOTE | 2017-04-15 09:39 | PD.PPDC ---
LEATHER WHITENER Discharge Instruction Condition Patient Condition: Good Activity/Restrictions Activity: Normal Activity Restrictions: No Exercising Follow-up Follow-up with Physician: 2, Week/Weeks Provider Information: instructions given recommended to make appointment to be seen at the clinic in 2 weeks Return to clinic for TEACHER INSTRUMENTAL Instructions: Fever greater than 101 Chills Worsening abdominal pain Excessive Vaginal Bleeding More than 2 pads per hour Unable to tolerate diet OB Instructions: Breast Tenderness Depression Blurried Vision Headache ROYAL PARISH MD Apr 15, 2017 09:39
--- NOTE | 2017-04-15 09:39 | PD.PPDC ---
SAS ADMINISTRATOR Discharge Instruction Condition Patient Condition: Good Activity/Restrictions Activity: Normal Activity Restrictions: No Exercising Follow-up Follow-up with Physician: 2, Week/Weeks Provider Information: instructions given recommended to make appointment to be seen at the clinic in 2 weeks Return to clinic for ENVIRONMENTAL SERVICES DIRECTOR Instructions: Fever greater than 101 Chills Worsening abdominal pain Excessive Vaginal Bleeding More than 2 pads per hour Unable to tolerate diet OB Instructions: Breast Tenderness Depression Blurried Vision Headache ROYAL PARISH MD Apr 15, 2017 09:39
--- NOTE | 2017-04-15 09:42 | DS ---
Date/Time of Note Date/Time of Note DATE: 04/15/17 TIME: 09:41 Discharge Summary Admission/Discharge Info Admit Date/Time Apr 12, 2017 at 10:30 Discharge Date/Time April 15, 2017 at 9:30 AM Discharge Diagnosis Day 2 post normal vaginal delivery Patient Condition: Good Procedures Normal vaginal delivery Hx of Present Illness Term in labor Hospital Course Satisfactory uneventful Home Meds Reported Medications Multivit/Min/Fol Ac/Iron/Pren* ( S*) 1 Tab Tab, 1 TAB PO DAILY, TAB 01/04/17 [None] No Conflict Check 07/11/10 Follow-up Plan instruction given recommended to make appointment to be seen at the clinic in 2 weeks Primary Care Provider Care Physician No Primary Time spent on discharge: < 30 minutes Pending Labs Laboratory Tests Test 04/14/17 09:52 White Blood Count 12.210^3/ul (4.8-10.8) Red Blood Count 3.1510^6/ul (4.20-5.40) Hemoglobin 8.9g/dl (12.0-16.0) Hematocrit 26.3% (37.0-47.0) Mean Corpuscular Volume 83.5fl (82.0-101.0) Mean Corpuscular Hemoglobin 28.3pg (29.0-33.0) Mean Corpuscular Hemoglobin Concent 33.8g/dl (32.0-37.0) Red Cell Distribution Width 15.2% (11.5-14.5) Platelet Count 53575^3/UL (140-415) Mean Platelet Volume 10.9fl (7.4-10.4) Neutrophils % 74.2% (39.0-77.0) Lymphocytes % 16.9% (15.0-51.0) Monocytes % 7.6% (0.0-11.0) Eosinophils % 0.4% (0.0-7.0) Basophils % 0.2% (0.0-2.0) Nucleated Red Blood Cells % 0.0/100WBC (0.0-0.0) Neutrophils # 9.010^3/ul (1.6-7.5) Lymphocytes # 2.110^3/ul (0.8-2.9) Monocytes # 0.910^3/ul (0.3-0.9) Eosinophils # 0.110^3/ul (0.0-0.5) Basophils # 0.010^3/ul (0.0-0.1) Nucleated Red Blood Cells # 0.010^3/ul (0.0-0.0) ROYAL PARISH MD Apr 15, 2017 09:42
[2017-04-15] MEDS: HYDROCODONE/APAP (5/325) TAB PO PRN (10:29)
== END 2017-04-15 15:00 | disposition home or self-care (01) | DRG 775 ==
LOC: L-D 07:59 → OBT 07:59 → L-D 10:30 → OBT 10:35 → L-D 10:49 → PP1 04-13 08:18
PROVIDERS: ADMIT Obstetrics & Gynecology; ATTEND Obstetrics & Gynecology
PROC: 10D07Z6 Extraction of Products of Conception, Vacuum, Via Natural or Artificial Opening (ICD-10-PCS; principal; 2017-04-13)
PROC: 3E0P3VZ Introduction of Hormone into Female Reproductive, Percutaneous Approach (ICD-10-PCS; 2017-04-13)
PROC: 3E0P7VZ Introduction of Hormone into Female Reproductive, Via Natural or Artificial Opening (ICD-10-PCS; 2017-04-13)
DX: O48.0 Post-term pregnancy (principal); O76 Abnormality in fetal heart rate and rhythm complicating labor and delivery; Z37.0 Single live birth; Z3A.41 41 weeks gestation of pregnancy
CPT/HCPCS: 62319; 76815; 76818; 85025; 85610; 85730; 86592; 86900; 86901; 87340; 90686; 90715; 99464; G0463; J0290; J0595; J2590; J3010; J7120

== ENCOUNTER 2017-06-17 04:01 | Emergency (ER) | END 2017-06-17 05:33 | disposition left against medical advice (07) ==

== ENCOUNTER 2017-12-23 11:05 | Emergency (ER) | END 2017-12-23 13:58 | disposition home or self-care (01) ==